=== PATIENT | male | born 1995 | race Caucasian/White ===

== ENCOUNTER 2022-10-18 22:32 | Emergency (ER) | payer OTHER ==
[~2022-10-18] VITALS: Ht 177.8 cm; Wt 77.1 kg
--- NOTE | 2022-10-18 23:39 | NUR ---
BIB SELF FROM HOME C/O L HAND LAC. -BLOOD THINNERS. TDAP UTD
[2022-10-18] MEDS ORDERED: GELATIN SPONGE,ABSORBABLE 1 SPONGE SPONGE TP ONE (23:40)
[2022-10-19] MEDS ORDERED: GELATIN SPONGE,ABSORBABLE 1 SPONGE SPONGE TP ONE
--- NOTE | 2022-10-19 00:36 | NUR ---
Patient discharged to home in stable condition. Written and verbal after care instructions given. Patient verbalizes understanding of instruction.
[2022-10-19 00:37] VITALS: BP 137/85
== END 2022-10-19 00:37 | disposition home or self-care (01) ==
LOC: ER 22:39
DX: S61.432A Puncture wound without foreign body of left hand, initial encounter (principal); W45.8XXA Other foreign body or object entering through skin, initial encounter; Y93.89 Activity, other specified; Y92.89 Other specified places as the place of occurrence of the external cause; Y99.8 Other external cause status